=== PATIENT | female | born 1985 | race Caucasian/White ===

== ENCOUNTER 2019-11-17 09:08 | Emergency (ER) | payer MEDICAID ==
[~2019-11-17] VITALS: Ht 162.6 cm; Wt 65.8 kg
--- NOTE | 2019-11-17 09:22 | NUR ---
CAME IN FOR RIGHT FLANK PAIN SINCE YESTERDAY, TO ER BED 11, HOOKED TO BP CUFF AND POX, VSS, CHANGED TO HOSP GOWN, WARM BLANKET PROVIDED, PATIENT AAO x 4, BREATHING EVEN AND UNLABORED, AWAITING MD WEAVER.
--- NOTE | 2019-11-17 09:28 | NUR ---
DR LEGER AT BEDSIDE
[2019-11-17] MEDS ORDERED: ONDANSETRON HCL/PF 4 MG/2 ML VIAL ONE (09:36)
[2019-11-17] MEDS ORDERED: MORPHINE SULFATE INJ 4 MG/ML DISP.SYRIN ONE (09:37)
[2019-11-17 09:41] LABS: BASOPHILS # (AUTO) 0.1 /CMM (0.0-0.2); BASOPHILS % (AUTO) 0.6 % (0.0-2.0); EOSINOPHILS % (AUTO) 0.7 % (0.0-6.0); HEMATOCRIT 39 % (33-45); LYMPHOCYTES # (AUTO) 1.6 /CMM (0.8-4.8); LYMPHOCYTES % (AUTO) 12.2 % (20.0-44.0); MEAN CORPUSCULAR HGB CONC 33 g/dl (31.0-36.0); MEAN CORPUSCULAR VOLUME 92 fL (82-100); MONOCYTES # (AUTO) 1.1 /CMM (0.1-1.30); MONOCYTES % (AUTO) 8.3 % (2.0-12.0); NEUTROPHILS # (AUTO) 10.4 /CMM (1.8-8.9); NEUTROPHILS % (AUTO) 78.2 % (43.0-81.0); PLATELET COUNT (AUTO) 257 /CMM (150-450); RED BLOOD CELL COUNT(AUTO) 4.25 MIL/uL (4.0-5.2); WHITE BLOOD COUNT (AUTO) 13.3 K/uL (4.3-11.0)
[2019-11-17] MEDS: IV NS 0.9% 1,000 ML BAG IV ONE (09:41)
[2019-11-17] MEDS: ONDANSETRON HCL/PF 4 MG/2 ML VIAL IVP ONE (09:41)
[2019-11-17] MEDS: MORPHINE SULFATE INJ 2 MG/ML DISP.SYRIN IV ONE (09:41)
[2019-11-17 09:43] LABS: BILIRUBIN,URINE Negative (NEGATIVE); BLOOD, URINE Large Ery/uL (NEGATIVE); KETONES,URINE Negative (NEGATIVE); NITRITE, URINE Positive (NEGATIVE); PH,URINE 6.5 (5.0-8.0); PROTEIN,URINE >=300 mg/dl (NEGATIVE); UGLUCOSE Negative (NEGATIVE); UROBILINOGEN,URINE 0.2 EU/dL (0.2)
[2019-11-17 09:54] LABS: APPEARANCE,URINE CLOUDY (CLEAR); COLOR,URINE DARK YELLOW (YELLOW)
[2019-11-17 09:56] LABS: LEUKOCYTE ESTERASE ,URINE 2+ (NEGATIVE)
[2019-11-17 09:57] LABS: BACTERIA,URINE Moderate /HPF (None Seen); BILIRUBIN,DIRECT 0.2 mg/dL (0.0-0.2); BILIRUBIN,TOTAL 0.8 mg/dL (0.2-1.0); CREATININE 0.9 mg/dL (0.6-1.3); POTASSIUM 3.3 mmol/L (3.5-5.1); RBC,URINE TOO NUMEROUS TO COUN /HPF (0-2); SQUAMOUS EPITHELIAL CELL,UR Few /HPF (None Seen); WBC,URINE 81-100 /HPF (0-3)
[2019-11-17] MEDS ORDERED: KETOROLAC TROMETHAMINE 15 MG/ML VIAL ONE (10:27)
[2019-11-17] MEDS ORDERED: CEFTRIAXONE 1GM BAG (ER ONLY) 50 ML IV ONE (10:27)
[2019-11-17] MEDS: CEFTRIAXONE 1GM BAG (ER ONLY) 50 ML IV ONE (10:34)
[2019-11-17] MEDS: KETOROLAC TROMETHAMINE INJ 30 MG/ML VIAL IV ONE (10:35)
--- NOTE | 2019-11-17 11:24 | NUR ---
IV removed. Catheter intact and site benign. Pressure and 4x4 applied to site. No bleeding noted.Patient discharged to home in stable condition. Written and verbal after care instructions given. Patient verbalizes understanding of instruction.
[2019-11-17 11:26] VITALS: BP 110/71
== END 2019-11-17 11:27 | disposition home or self-care (01) ==
LOC: ER 09:08
DX: N12 Tubulo-interstitial nephritis, not specified as acute or chronic (principal); Z88.6 Allergy status to analgesic agent
CPT/HCPCS: 36415; 74176; 80048; 80076; 81001; 83690; 84703; 85025; 87086; 96365; 96375; 99284; J0696; J1885; J2270; J2405; J7030; 81000-TC; 87186-TC

== ENCOUNTER 2021-01-23 21:44 | Emergency (ER) | payer MEDICAID ==
[~2021-01-23] VITALS: Ht 152.4 cm; Wt 53.5 kg
--- NOTE | 2021-01-23 21:56 | NUR ---
PT AAOX4. AMBULATORY WITH STEADY GAIT. BIBSELF C/O GEN CP RADIATING TO UPPER BACK "ON AND OFF." ALSO, PT HAD SYNCOPAL EPISODE ON Thursday01/21/21, DOES NOT REMEMBER IF SHE HIT HER HEAD OR HOW IT OCCURED. +C/O "ON AND OFF" BILATERAL ARM TINGLING." PLACED IN A GOWN, ON CORNER CUTTER, AND PULSE OX. NO ACUTE DISTRESS NOTED. VITALS STABLE. WILL CONTINUE TO MONITOR.
[2021-01-23 22:43] LABS: BASOPHILS # (AUTO) 0.1 K/uL (0.0-0.2); BASOPHILS % (AUTO) 1.3 % (0.0-2.0); EOSINOPHILS % (AUTO) 1.3 % (0.0-6.0); HEMATOCRIT 42 % (33-45); HEMOGLOBIN 13.6 g/dL (11.5-14.8); LYMPHOCYTES % (AUTO) 28.5 % (20.0-44.0); MEAN CORPUSCULAR HGB CONC 33 g/dl (31.0-36.0); MEAN CORPUSCULAR VOLUME 93 fL (82-100); MONOCYTES # (AUTO) 0.5 K/uL (0.1-1.30); MONOCYTES % (AUTO) 7.3 % (2.0-12.0); NEUTROPHILS # (AUTO) 4.3 K/uL (1.8-8.9); NEUTROPHILS % (AUTO) 61.6 % (43.0-81.0); PLATELET COUNT (AUTO) 259 K/uL (150-450); RED BLOOD CELL COUNT(AUTO) 4.47 MIL/uL (4.0-5.2)
--- NOTE | 2021-01-23 22:43 | NUR ---
BLOOD SENT TO LAB
[2021-01-23 22:52] LABS: CALCIUM, SERUM 8.1 mg/dL (8.5-10.1); CARBON DIOXIDE 27 mmol/L (21-32); CHLORIDE 104 mmol/L (98-107); CREATININE 0.9 mg/dL (0.6-1.3); GLUCOSE 86 mg/dL (74-106); POTASSIUM 3.7 mmol/L (3.5-5.1); SODIUM SERUM 140 mmol/L (136-145); UREA NITROGEN, BLOOD 21 mg/dL (7-18)
[2021-01-23] MEDS ORDERED: ESCI5TAB PO (23:53)
--- NOTE | 2021-01-24 00:15 | NUR ---
Patient discharged to home in stable condition. Written and verbal after care instructions given. Patient verbalizes understanding of instruction. IV removed. Catheter intact and site benign. Pressure and 4x4 applied to site. No bleeding noted. Pt ambulatory with a steady gait
[2021-01-24 00:24] VITALS: BP 128/78
== END 2021-01-24 00:15 | disposition home or self-care (01) ==
LOC: ER 22:07
DX: F45.9 Somatoform disorder, unspecified (principal); R07.89 Other chest pain; R51.9 Headache, unspecified; Z88.6 Allergy status to analgesic agent; Z79.899 Other long term (current) drug therapy
CPT/HCPCS: 36415; 71045-TC; 80048-TC; 83735-TC; 84484-TC; 84703-TC; 85025-TC

== ENCOUNTER 2022-02-03 21:21 | Emergency (ER) | payer MEDICAID ==
[~2022-02-03] VITALS: Ht 152.4 cm; Wt 52.2 kg
[~2022-02-03 21:21] MED LIST: ESCI5TAB PO
--- NOTE | 2022-02-03 22:49 | NUR ---
ZOO KEEPER CAT AT BEDSIDE FOR EVALUATION
[2022-02-03] MEDS ORDERED: IBUP-1955 PO (22:56)
[2022-02-03] MEDS ORDERED: KETOROLAC TROMETHAMINE INJ 60 MG/2 ML VIAL IM ONE (23:00)
[2022-02-03 23:27] VITALS: BP 112/85
--- NOTE | 2022-02-03 23:27 | NUR ---
Patient discharged to home in stable condition. Written and verbal after care instructions given. Patient verbalizes understanding of instruction.
== END 2022-02-03 23:28 | disposition home or self-care (01) ==
LOC: ER 21:30
DX: S09.90XA Unspecified injury of head, initial encounter (principal); Z88.8 Allergy status to other drugs, medicaments and biological substances; Z79.899 Other long term (current) drug therapy; W22.8XXA Striking against or struck by other objects, initial encounter; Y93.89 Activity, other specified; Y92.89 Other specified places as the place of occurrence of the external cause; Y99.8 Other external cause status
CPT/HCPCS: 99283; 96372; J1885